=== PATIENT | male | born 1950 | race Two or more races ===

== ENCOUNTER → 2017-11-03 | Outpatient (CLI) | payer OTHER ==
[~2017-11-03] MED LIST: ALFU10TA PO; FINA5TAB4 PO; GLIM1TAB2 PO; LISI40TA PO; METF10002 PO; PRAV20TA2 PO; REGADENOSON 0.4 MG/5 ML SYRINGE ONE; TAMS0.4C2 PO
== END | disposition home or self-care (01) ==
LOC: CFH 07:05
PROVIDERS: ATTEND Internal Medicine Cardiovascular Disease
DX: I21.19 ST elevation (STEMI) myocardial infarction involving other coronary artery of inferior wall (principal); I10 Essential (primary) hypertension; E78.5 Hyperlipidemia, unspecified; E11.9 Type 2 diabetes mellitus without complications; I45.2 Bifascicular block
CPT/HCPCS: 78452; 93017; 93306; A9502; J2785